=== PATIENT | male | born 1980 | race Caucasian/White ===

== ENCOUNTER 2019-04-28 20:42 | Emergency (ER) | payer SELFPAY ==
--- NOTE | 2019-04-28 21:03 | EDM.PDOC ---
ED HPI GENERAL MEDICAL PROBLEM - General Chief Complaint: Upper Extremity Injury/Pain Stated Complaint: RIGHT HAND;FINGER INJURY Time Seen by Provider: 04/28/19 20:43 Source of Information: Reports: Patient History Limitations: Reports: No Limitations - History of Present Illness INITIAL COMMENTS - FREE TEXT/NARRATIVE: HISTORY AND PHYSICAL: History of present illness: Patient is a 38-year-old male who presents to the ED today for concern of right hand injury that occurred a few hours prior to arrival to the ED. Patient states he was changing the washer fluid in his vehicle and the had the dasilva of the vehicle up. Patient states he bumped into the the stick holding up the dasilva of the pickup which fell onto his right hand. Patient denies any prior injury to the hand or any other symptoms or concerns. Patient denies fever, chills, chest pain, shortness of breath, or cough. Denies headache, neck stiff ness, change in vision, syncope, or near syncope. Denies nausea, vomiting, abdominal pain, diarrhea, constipation, or dysuria. Has not noted any blood in urine or stool. Patient has been eating and drinking appropriately. Review of systems: As per history of present illness and below otherwise all systems reviewed and negative. Past medical history: As per history of present illness and as reviewed below otherwise noncontributory. Surgical history: As per history of present illness and as reviewed below otherwise noncontributory. Social history: See social history for further information Family history: As per history of present illness and as reviewed below otherwise noncontributory. Physical exam: General: Patient is alert, oriented, and in no acute distress. Patient sitting comfortably on exam table. HEENT: Atraumatic, normocephalic, pupils equal and reactive bilaterally, negative for conjunctival pallor or scleral icterus, mucous membranes moist, TMs normal bilaterally, throat clear, neck supple, nontender, trachea midline. No drooling or trismus noted. No meningeal signs. No hot potato voice noted. Lungs: Clear to auscultation, breath sounds equal bilaterally, chest nontender. Heart: S1S2, regular rate and rhythm without overt murmur Abdomen: Soft, nondistended, nontender. Negative for masses or hepatosplenomegaly. Negative for costovertebral tenderness. Pelvis: Stable nontender. Genitourinary: Deferred. Rectal: Deferred. Skin: Intact, warm, dry. No lesions or rashes noted. Extremities: Negative for cords or calf pain. Neurovascular unremarkable. The distal ring finger of the right hand does have bruising on the palmar surface and mild edema of the finger. Patient has complete range of motion of the right wrist and digits but does have pain with range of motion of the digits. Radial pulses grossly intact of the right upper extremity with capillary refill less than 2 seconds. Neuro: Awake, alert, oriented. Cranial nerves II through XII unremarkable. Cerebellum unremarkable. Motor and sensory unremarkable throughout. Exam nonfocal. Notes: Discussed the importance for follow-up with an orthopedic provider. Voices understanding and is agreeable to plan of care. Denies any further questions or concerns at this time. Diagnostics: hand XR Therapeutics: finger splint Prescription: Diclofenac Impression: Comminuted Tuft Fracture of the 4th digit, right closed Plan: 1. Take medication as prescribed. You can also use Tylenol as directed for pain and discomfort. 2. Follow-up with an orthopedic provider as discussed. Return to the ED as needed and as discussed. 3. Leave the splint on until orthopedic follow-up. Rest, elevated the affected extremity. Definitive disposition and diagnosis as appropriate pending reevaluation and review of above. ring finger right hand Pain Score (Numeric/FACES): 10 - Related Data Allergies Allergy/AdvReac Type Severity Reaction Status Date / Time Unable to Assess Allergy Unverified 04/28/19 20:54 Home Meds: Home Meds . [No Known Home Meds] 04/28/19 [History] Past Medical History - Past Health History Medical/Surgical History: Denies Medical/Surgical History - Past Surgical History HEENT Surgical History: Reports: Oral Surgery Social & Family History - Family History Family Medical History: Noncontributory - Tobacco Use Smoking Status *Q: Current Every Day Smoker Years of Tobacco use: 20 Packs/Tins Daily: 1 - Recreational Drug Use Recreational Drug Use: No Review of Systems - Review of Systems Review Of Systems: Comprehensive ROS is negative, except as noted in HPI. ED EXAM, GENERAL - Physical Exam Exam: See Below (see dictation) Course - Vital Signs Last Recorded V/S: Last Vital Signs Temp 97.0 F 04/28/19 20:53 Pulse 77 04/28/19 20:53 Resp 18 04/28/19 20:53 BP 123/85 11/14/19 20:53 Pulse Ox 96 04/28/19 20:53 - Orders/Labs/Meds Orders: Active Orders 24 hr Category Date Time Status Communication Order [RC] STAT Care 04/28/19 22:04 Active DME for Discharge [COMM] Stat Oth 04/28/19 22:01 Ordered Departure - Departure Time of Disposition: 22:00 Disposition: Home, Self-Care 01 Clinical Impression: Closed fracture of tuft of distal phalanx of finger - Discharge Information Referrals: PCP,None [Primary Care Provider] - Forms: ED Department Discharge Additional Instructions: The following information is given to patients seen in the emergency department who are being discharged to home. This information is to outline your options for follow-up care. We provide all patients seen in our emergency department with a follow-up referral. The need for follow-up, as well as the timing and circumstances, are variable depending upon the specifics of your emergency department visit. If you don't have a primary care physician on staff, we will provide you with a referral. We always advise you to contact your personal physician following an emergency department visit to inform them of the circumstance of the visit and for follow-up with them and/or the need for any referrals to a consulting specialist. The emergency department will also refer you to a specialist when appropriate. This referral assures that you have the opportunity for follow-up care with a specialist. All of these measure are taken in an effort to provide you with optimal care, which includes your follow-up. Under all circumstances we always encourage you to contact your private physician who remains a resource for coordinating your care. When calling for follow-up care, please make the office aware that this follow-up is from your recent emergency room visit. If for any reason you are refused follow-up, please contact the [facility] Emergency Department at and asked to speak to the emergency department charge nurse. [facility] Primary [facility] [address] [place] [id number] [facility] Specialty Care - [facility] Professional Building [address] [facility], [address] [place] [address] Dr Kuo, Orthopedist [facility] [address] [place] [address] Dr Oates - Dr Salmon - Dr Beckman [facility] [address] [place] [address] [facility] [address] [place] [address] 1. Take medication as prescribed. You can also use Tylenol as directed for pain and discomfort. 2. Follow-up with an orthopedic provider as discussed. Return to the ED as needed and as discussed. 3. Leave the splint on until orthopedic follow-up. Rest, elevated the affected extremity. - My Orders Last 24 Hours: My Active Orders 04/28/19 22:01 DME for Discharge [COMM] Stat 04/28/19 22:04 Communication Order [RC] STAT - Assessment/Plan Last 24 Hours: My Active Orders 04/28/19 22:01 DME for Discharge [COMM] Stat 04/28/19 22:04 Communication Order [RC] STAT
--- NOTE | 2019-04-28 22:04 | CR ---
INDICATION: Crush hand injury, fingers caught in dasilva of vehicle TECHNIQUE: Hand radiograph 3 views right COMPARISON: None FINDINGS: Bone: There is a comminuted fracture of the 4th distal phalangeal tuft. Joint: The carpal and metacarpal-phalangeal joints are unremarkable in appearance. The interphalangeal joints are normal in appearance. Soft tissue: Unremarkable. No radiopaque foreign bodies are seen. IMPRESSION: 1. There is a comminuted fracture of the 4th distal phalangeal tuft. Dictated by Thad Rogers MD @ 04/28/2019 10:03:46 PM Dictated by: Thad Rogers MD @ 04/28/2019 22:03:49 (Electronically Signed)
== END 2019-04-28 22:28 | disposition home or self-care (01) ==
LOC: MW.ED 20:42
DX: S62.634A Displaced fracture of distal phalanx of right ring finger, initial encounter for closed fracture (principal); F17.210 Nicotine dependence, cigarettes, uncomplicated; W23.1XXA Caught, crushed, jammed, or pinched between stationary objects, initial encounter
CPT/HCPCS: 73130-26-RT; 73130-RT; 99282; 99283-25